=== PATIENT | female | born 1980 | race Caucasian/White ===

== ENCOUNTER 2020-07-04 08:14 | Outpatient (CLI) | payer BC ==
--- NOTE | 2020-07-04 08:52 | ULT ---
ABDOMINAL ULTRASOUND COMPLETE: Date: 07/04/2020 HISTORY: Pain. COMPARISON: 08/06/2017. FINDINGS: Liver echotexture is within normal limits. The gallbladder demonstrates no evidence for gallstones, w all thickening, edema, or pericholecystic fluid. Common bile duct 0.5 cm. Visualized pancreas, aorta, IVC, and spleen are unremarkable. There is no renal hydronephrosis. No evidence for abnormal fluid c ollection. IMPRESSION: Unremarkable abdominal ultrasound. POS: [facility]
== END 2020-07-04 08:15 | disposition home or self-care (01) ==
LOC: SCSULT 08:14 → BICULT 08:15
PROVIDERS: ATTEND Family Medicine
DX: R10.10 Upper abdominal pain, unspecified (principal)
CPT/HCPCS: 93975